=== PATIENT | female | born 2000 | race Two or more races ===

== ENCOUNTER 2024-02-05 12:44 | Emergency (ER) | payer OTHER ==
[~2024-02-05] VITALS: Ht 152.4 cm; Wt 46.7 kg
[2024-02-05 12:56] VITALS: BP 96/62; O2SAT 100
[2024-02-05] MEDS ORDERED: GUAIFENESIN/DEXTROMETHORPHAN 10ML BLIST.PACK PO ONE (13:15)
[2024-02-05] MEDS ORDERED: ACETAMINOPHEN 500 MG GEL..CAP PO ONE (13:15)
[2024-02-05 13:28] LABS: HEMATOCRIT 35.7 % (36.0-45.00); HEMOGLOBIN 11.2 g/dL (12.0-15.00); MEAN CELL VOLUME 71.3 fL (80.00-100.00); MEAN CORPUSCULAR HEMOGLOBIN 22.3 pg (27.00-32.0); MEAN CORPUSCULAR HGB CONC 31.4 g/dl (32.0-36.0); PLATELET COUNT 270 K/uL (150-450); RED CELL DISTRIBUTION WIDTH 17.5 % (11.5-14.5)
[2024-02-05] MEDS ORDERED: ZITHROMAX500 MG PO (14:11)
[2024-02-05] MEDS ORDERED: TUSNEL LIQUID178 ML PO (14:11)
== END 2024-02-05 14:14 | disposition home or self-care (01) ==
LOC: ER 12:44
PROVIDERS: General Practice
DX: J06.9 Acute upper respiratory infection, unspecified (principal); Z20.822 Contact with and (suspected) exposure to COVID-19